=== PATIENT | female | born 1995 | race Caucasian/White ===

== ENCOUNTER 2023-05-14 14:33 | Emergency (ER) | payer OTHER ==
[~2023-05-14] VITALS: Ht 172.7 cm; Wt 145.2 kg
[2023-05-14 14:38] VITALS: BP 146/87
== END 2023-05-14 16:12 | disposition home or self-care (01) ==
LOC: ER 14:33
DX: M25.561 Pain in right knee (principal); M25.571 Pain in right ankle and joints of right foot; Z88.0 Allergy status to penicillin; Z88.1 Allergy status to other antibiotic agents; X50.1XXA Overexertion from prolonged static or awkward postures, initial encounter
CPT/HCPCS: 29505; 73562-RT; 73610; 99283-25